=== PATIENT | female | born 1980 | race Caucasian/White ===

== ENCOUNTER 2016-07-21 14:12 | Emergency (ER) | payer MEDICAID ==
--- NOTE | 2016-08-02 14:55 | CO ---
ADMIT: 07/21/2016 RM/LOC: ER [facility] MR#: [id number] [address] [address] FELISHAMARIA ECASEY A [address] [birth year][address] [place] [address] Consultation SEX: F AGE: 36 : 1980 DATE OF CONSULTATION: 07/21/2016 ATTENDING PHYSICIAN: Jorge Bello CONSULTING PHYSICIAN: Chad Souza MD HISTORY OF PRESENT ILLNESS: The patient is a 36-year-old female, who presented to the ER after 2-day history of right eye pain. She has redness and blurred vision. She is a contact lens wearer and sleeps in them. She has been doing this for years. She has been seen at [facility] in the past for her glasses and contacts, however, she is on a [employer], they no longer take that. She went to [facility], and they offered her to see an vice president of compliance, but that vice president of compliance also does not take Medicaid, so she started drops and was using Ocuflox every 2 hours while awake and then told to do it twice a day. She has had photophobia, eye pain, and blurred vision. Today she noticed something that did not look right on her cornea and then presented to the ER here in [place]. Her pressures were 22 and 16 and motility was full. Slit lamp exam, lids and lashes of the right eye had edema and the left eye was normal. She had +4 injection on the right eye, the left eye was normal. The cornea had a large clump of mucus, adherent to the cornea and this was removed revealing a large round ulcer centrally but no infiltrate. The left eye was normal. Her anterior chamber is deep with no cell, no hypopyon. Iris was round and reactive, but more miotic right eye than the left eye secondary to her pain. Lens was clear. ALLERGIES: SHE HAS HAD NO ALLERGIES. MEDICATIONS: She is on lisinopril. SOCIAL HISTORY: She smokes half a pack a day. She is . Presents here with her and child. ASSESSMENT: Corneal ulcer with no infiltrate in a contact lens wearer which puts her at high risk for an infectious ulcer. She was instructed to the Ocuflox every 2 hours around the clock, Cyclogyl twice a day and she is to see me tomorrow or Friday in the office. Chad Souza MD/ fiona JOB #: [id number] CC: Jorge Bello, Attending Physician Chad Souza, Family Physician
--- NOTE | 2016-08-17 21:25 | ER ---
ADMIT: 07/21/2016 RM/LOC: ER [facility] MR#: [id number] [address] [id number] CASEY BAEZA [address] [place] [address] [facility] Emergency Room Report SEX: F AGE: 36 : 1980 DATE: 07/21/2016 This 36-year-old female with redness and painful eye for the past 48 hours. She had been seen in urgent care and given Floxin drops and tramadol. The redness intensified as did the pain, so she came to the Emergency Department. See T-sheet for history and physical. The right eye is injected and reddened with fluorescein uptake. Dr. Souza was consulted, saw the patient in the Emergency Department, wrote prescriptions and will have followup. DIAGNOSIS: Iritis. Chalo Quigley MD/ fiona JOB #: [id number] CC: Jorge Bello MD, Attending Physician
== END 2016-07-21 15:45 | disposition home or self-care (01) ==
LOC: ER 14:12
DX: H20.9 Unspecified iridocyclitis (principal); F17.210 Nicotine dependence, cigarettes, uncomplicated; Z79.899 Other long term (current) drug therapy